=== PATIENT | male | born 1950 | race Caucasian/White ===

== ENCOUNTER 2017-01-04 11:01 | Inpatient (IN) ==
[2017-01-04] MEDS ORDERED: ACETAMINOPHEN 325 MG TABLET PO PRN (12:37)
[2017-01-04] MEDS ORDERED: ONDANSETRON 4 MG/2 ML VIAL IV PRN (12:37)
[2017-01-04 13:36] LABS: ABG Base Excess -1.9 MMOL/L (-2.5-2.5); ABG HCO3 20.8 MMOL/L (20-26); ABG Oxygen Saturation 94.3 % (95-100); ABG PCO2 30.4 MM HG (35-48); ABG PH 7.453 (7.35-7.45); ABG PO2 65.3 MM HG (80-95); ABG TCO2 21.7 MMOL/L (23-27); Pt O2 Delivery Device Room Air
[2017-01-04 13:54] LABS: Basophils % 0.6 % (0.0-0.8); Eosinophils # 0.1 10*3/uL (0.0-0.87); Eosinophils % 0.9 % (0.00-10.9); Hemoglobin 14.9 GM/DL (14.0-18.0); Immature Granulocytes % 0.4 %; Immature Granulocytes Absolute 0.03 #; Lymphocytes # 1.2 10*3/uL (1.4-4.0); Lymphocytes % 17.5 % (21.2-54.2); Mean Corpuscular HGB Conc 33.1 GM/DL (32-36); Mean Corpuscular Hemoglobin 32 PG (27-34); Mean Corpuscular Volume 96.8 FL (87-102); Mean Platelet Volume 11.2 FL (9.6-12.0); Monocytes # 0.8 10*3/uL (0.11-0.8); Monocytes % 11.5 % (1.7-12.7); Neutrophils # 4.7 10*3/uL (1.4-7.4); Neutrophils % 69.1 % (38.7-73.9); Platelet Count 234 T/CUMM (130-400); Red Blood Count 4.65 MC/CUMM (3.8-5.5); Red Cell Distribution Width 13.7 % (9.3-17.3); White Blood Count 6.8 T/CUMM (4-12)
[2017-01-04 14:15] LABS: Albumin 3.3 G/DL (3.4-5.0); Calcium 8.7 MG/DL (8.5-10.1); Osmolality,Calculated 280.4 MOS/KG (273-304); Total Protein 6.1 G/DL (6.4-8.3)
[2017-01-04 14:17] LABS: Troponin I Only 0.045 NG/ML (0.00-0.045)
[2017-01-04] MEDS: DOCUSATE SODIUM 100 MG CAPSULE PO SCH (21:32)
[2017-01-04] MEDS: FUROSEMIDE 20 MG/2 ML VIAL IV SCH (21:32)
[2017-01-04] MEDS: ENOXAPARIN 40 MG/0.4 ML SYRINGE SUBCUT SCH (21:32)
[2017-01-04 23:21] LABS: Apearance,Urine CLEAR (Clear); Bacteria,Urine Occasional /HPF (Few); Bilirubin,Urine Negative (Negative); Blood, Urine Moderate mg/dL (Negative); Glucose,Urine (UA) Negative (Negative); Hyaline Casts,Urine 5 /LPF (0-3); Ketones,Urine Negative (Negative); Mucus,Urine Occasional /LPF (Occasional); Nitrite,Urine Negative (Negative); Protein,Urine Negative; RBC,Urine 6 /HPF (0-4); Urine Color Straw (Yellow); Urine Specific Gravity 1.004 (1.001-1.035); Urine Urobilinogen < 2.0 EU/DL (0.2-1.0); WBC,Urine <1 /HPF (0-6)
[2017-01-05 04:17] LABS: Basophils % 0.4 % (0.0-0.8); Eosinophils # 0.2 10*3/uL (0.0-0.87); Eosinophils % 2.9 % (0.00-10.9); Hematocrit 42.3 VOL% (42.0-52.0); Hemoglobin 14.2 GM/DL (14.0-18.0); Immature Granulocytes % 0.3 %; Immature Granulocytes Absolute 0.02 #; Lymphocytes # 1.7 10*3/uL (1.4-4.0); Lymphocytes % 24.9 % (21.2-54.2); Mean Corpuscular HGB Conc 33.6 GM/DL (32-36); Mean Corpuscular Hemoglobin 32 PG (27-34); Mean Corpuscular Volume 96.4 FL (87-102); Mean Platelet Volume 10.5 FL (9.6-12.0); Monocytes # 0.9 10*3/uL (0.11-0.8); Monocytes % 12.2 % (1.7-12.7); Neutrophils # 4.1 10*3/uL (1.4-7.4); Neutrophils % 59.3 % (38.7-73.9); Platelet Count 238 T/CUMM (130-400); Red Blood Count 4.39 MC/CUMM (3.8-5.5); Red Cell Distribution Width 13.8 % (9.3-17.3)
[2017-01-05 04:48] LABS: Calcium 8.3 MG/DL (8.5-10.1); Magnesium 2.1 MG/DL (1.8-2.4); Osmolality,Calculated 282.3 MOS/KG (273-304); Potassium 4.2 MMOL/L (3.5-5.1); Risk Ratio 3.13; VLDL CHOLESTEROL 17.4 MG/DL
[2017-01-05 04:53] LABS: Free T4 (Free Thyroxine) 1.22 NG/DL (0.76-1.46); Thyroid Stimulating Hormone 3.89 uIU/ml (0.358-3.74)
[2017-01-05] MEDS: FUROSEMIDE 20 MG/2 ML VIAL IV SCH ×2 (09:25→16:15)
[2017-01-05] MEDS: NICOTINE 14 MG/24 HR PATCH TRANSDERM SCH (09:25)
[2017-01-05] MEDS: PANTOPRAZOLE 40 MG TABLET PO SCH (09:25)
[2017-01-05] MEDS: DOCUSATE SODIUM 100 MG CAPSULE PO SCH ×2 (09:25→21:14)
[2017-01-05] MEDS: CARVEDILOL 3.125 MG TABLET PO SCH ×2 (12:44→21:14)
[2017-01-05] MEDS ORDERED: diphenhydrAMINE CAP 25 MG CAPSULE PO ONE (16:39)
[2017-01-05] MEDS ORDERED: DIAZEPAM 5 MG TABLET PO ONE (16:39)
[2017-01-05] MEDS ORDERED: POTASSIUM CHLORIDE RIDER 10 MEQ in PREMIX 1 EACH IV PRN (16:39)
[2017-01-05] MEDS ORDERED: MAGNESIUM SULF RIDER 2 GM in PREMIX 1 EACH IV PRN (16:39)
[2017-01-05] MEDS: FUROSEMIDE 40 MG/4 ML VIAL IV SCH (18:21)
[2017-01-05] MEDS: ENOXAPARIN 40 MG/0.4 ML SYRINGE SUBCUT SCH (21:14)
[2017-01-06 04:24] LABS: Basophils % 0.6 % (0.0-0.8); Eosinophils # 0.2 10*3/uL (0.0-0.87); Eosinophils % 3.3 % (0.00-10.9); Hematocrit 42.8 VOL% (42.0-52.0); Hemoglobin 14.3 GM/DL (14.0-18.0); Immature Granulocytes % 0.3 %; Immature Granulocytes Absolute 0.02 #; Lymphocytes # 1.7 10*3/uL (1.4-4.0); Lymphocytes % 23.7 % (21.2-54.2); Mean Corpuscular HGB Conc 33.4 GM/DL (32-36); Mean Corpuscular Hemoglobin 32 PG (27-34); Mean Platelet Volume 10.3 FL (9.6-12.0); Monocytes # 0.8 10*3/uL (0.11-0.8); Monocytes % 11.9 % (1.7-12.7); Neutrophils # 4.2 10*3/uL (1.4-7.4); Neutrophils % 60.2 % (38.7-73.9); Platelet Count 243 T/CUMM (130-400); Red Blood Count 4.46 MC/CUMM (3.8-5.5); Red Cell Distribution Width 13.6 % (9.3-17.3)
[2017-01-06 04:41] LABS: Calcium 8.3 MG/DL (8.5-10.1); Magnesium 2.1 MG/DL (1.8-2.4); Osmolality,Calculated 285.1 MOS/KG (273-304); Potassium 3.7 MMOL/L (3.5-5.1)
[2017-01-06] MEDS: SODIUM CHLORIDE 0.9% 1,000 ML IV SCH ×2 (04:55→13:58)
[2017-01-06] MEDS ORDERED: DIAZEPAM 5 MG TABLET ONE (07:30)
[2017-01-06] MEDS ORDERED: diphenhydrAMINE CAP 50 MG CAPSULE ONE (07:30)
[2017-01-06] MEDS ORDERED: ASPIRIN 325 MG TABLET ONE (07:31)
[2017-01-06] MEDS ORDERED: ASPIRIN 325 MG TABLET PO ONE (07:48)
[2017-01-06] MEDS ORDERED: LIDOCAINE 1% 20 ML VIAL ONE (08:37)
[2017-01-06] MEDS ORDERED: HEPARIN/NACL 0.9% 2 UNITS/ML 1,000 ML IV ONE (08:37)
[2017-01-06] MEDS ORDERED: HYDROmorphone 2 MG/1 ML VIAL ONE (08:43)
[2017-01-06] MEDS ORDERED: MIDAZOLAM 2 MG/2 ML VIAL ONE (08:44)
[2017-01-06] MEDS ORDERED: ZALEPLON 5 MG CAPSULE PO PRN (09:23)
[2017-01-06] MEDS: FUROSEMIDE 40 MG/4 ML VIAL IV SCH ×3 (13:43→16:36)
[2017-01-06] MEDS: DOCUSATE SODIUM 100 MG CAPSULE PO SCH ×2 (13:56→21:36)
[2017-01-06] MEDS: CARVEDILOL 3.125 MG TABLET PO SCH ×2 (13:59→21:37)
[2017-01-06] MEDS: PANTOPRAZOLE 40 MG TABLET PO SCH (13:59)
[2017-01-06] MEDS: NICOTINE 14 MG/24 HR PATCH TRANSDERM SCH (13:59)
[2017-01-06] MEDS: ENOXAPARIN 40 MG/0.4 ML SYRINGE SUBCUT SCH (21:37)
[2017-01-07 05:49] LABS: Basophils % 0.5 % (0.0-0.8); Eosinophils # 0.2 10*3/uL (0.0-0.87); Eosinophils % 2.2 % (0.00-10.9); Hematocrit 41.8 VOL% (42.0-52.0); Immature Granulocytes % 0.4 %; Immature Granulocytes Absolute 0.03 #; Lymphocytes # 1.7 10*3/uL (1.4-4.0); Lymphocytes % 23.2 % (21.2-54.2); Mean Corpuscular HGB Conc 33.5 GM/DL (32-36); Mean Corpuscular Hemoglobin 32 PG (27-34); Mean Corpuscular Volume 95.7 FL (87-102); Mean Platelet Volume 10.2 FL (9.6-12.0); Monocytes # 0.9 10*3/uL (0.11-0.8); Monocytes % 11.9 % (1.7-12.7); Neutrophils # 4.5 10*3/uL (1.4-7.4); Neutrophils % 61.8 % (38.7-73.9); Platelet Count 243 T/CUMM (130-400); Red Blood Count 4.37 MC/CUMM (3.8-5.5); Red Cell Distribution Width 13.5 % (9.3-17.3); White Blood Count 7.3 T/CUMM (4-12)
[2017-01-07 06:05] LABS: Calcium 8.3 MG/DL (8.5-10.1); Magnesium 2.1 MG/DL (1.8-2.4); Osmolality,Calculated 285.1 MOS/KG (273-304)
[2017-01-07] MEDS: FUROSEMIDE 40 MG/4 ML VIAL IV SCH ×2 (09:02→16:13)
[2017-01-07] MEDS: DOCUSATE SODIUM 100 MG CAPSULE PO SCH ×2 (09:03→20:54)
[2017-01-07] MEDS: NICOTINE 14 MG/24 HR PATCH TRANSDERM SCH (09:03)
[2017-01-07] MEDS: CARVEDILOL 3.125 MG TABLET PO SCH ×2 (09:03→20:54)
[2017-01-07] MEDS: PANTOPRAZOLE 40 MG TABLET PO SCH (09:04)
[2017-01-07] MEDS ORDERED: MAGNESIUM HYDROXIDE SUSP 30 ML UDCUP PO PRN (15:17)
[2017-01-07] MEDS: LISINOPRIL 5 MG TABLET PO SCH (16:14)
[2017-01-07] MEDS: ASPIRIN EC 81 MG TABLET PO SCH (16:14)
[2017-01-07] MEDS: ENOXAPARIN 40 MG/0.4 ML SYRINGE SUBCUT SCH (20:54)
[2017-01-07] MEDS: ROSUVASTATIN 10 MG TABLET PO SCH (20:54)
[2017-01-08 05:37] LABS: Basophils % 0.6 % (0.0-0.8); Eosinophils # 0.3 10*3/uL (0.0-0.87); Eosinophils % 4.5 % (0.00-10.9); Hematocrit 43.6 VOL% (42.0-52.0); Hemoglobin 14.5 GM/DL (14.0-18.0); Immature Granulocytes % 0.2 %; Immature Granulocytes Absolute 0.01 #; Lymphocytes # 1.7 10*3/uL (1.4-4.0); Lymphocytes % 27.1 % (21.2-54.2); Mean Corpuscular HGB Conc 33.3 GM/DL (32-36); Mean Corpuscular Hemoglobin 32 PG (27-34); Mean Corpuscular Volume 96.9 FL (87-102); Mean Platelet Volume 10.1 FL (9.6-12.0); Monocytes # 0.9 10*3/uL (0.11-0.8); Monocytes % 13.9 % (1.7-12.7); Neutrophils # 3.4 10*3/uL (1.4-7.4); Neutrophils % 53.7 % (38.7-73.9); Platelet Count 250 T/CUMM (130-400); Red Cell Distribution Width 13.6 % (9.3-17.3); White Blood Count 6.4 T/CUMM (4-12)
[2017-01-08 06:31] LABS: Calcium 8.3 MG/DL (8.5-10.1); Magnesium 2.3 MG/DL (1.8-2.4); Osmolality,Calculated 282.3 MOS/KG (273-304); Potassium 3.9 MMOL/L (3.5-5.1)
[2017-01-08] MEDS ORDERED: diphenhydrAMINE CAP 25 MG CAPSULE PO ONE (07:14)
[2017-01-08] MEDS ORDERED: DIAZEPAM 5 MG TABLET PO ONE (07:14)
[2017-01-08] MEDS ORDERED: TICAGRELOR 90 MG TABLET PO ONE (07:16)
[2017-01-08] MEDS ORDERED: SODIUM CHLORIDE 0.45% 1,000 ML IV SCH (07:30)
[2017-01-08] MEDS: DOCUSATE SODIUM 100 MG CAPSULE PO SCH ×2 (08:42→20:38)
[2017-01-08] MEDS: FUROSEMIDE 40 MG/4 ML VIAL IV SCH ×2 (08:42→18:26)
[2017-01-08] MEDS: NICOTINE 14 MG/24 HR PATCH TRANSDERM SCH (11:52)
[2017-01-08] MEDS: LISINOPRIL 5 MG TABLET PO SCH (11:53)
[2017-01-08] MEDS: CARVEDILOL 3.125 MG TABLET PO SCH ×2 (11:53→20:38)
[2017-01-08] MEDS: TICAGRELOR 90 MG TABLET PO SCH ×2 (11:54→20:38)
[2017-01-08] MEDS: PANTOPRAZOLE 40 MG TABLET PO SCH (11:54)
[2017-01-08] MEDS: ASPIRIN EC 81 MG TABLET PO SCH (11:54)
[2017-01-08] MEDS ORDERED: LIDOCAINE 1% 20 ML VIAL ONE (12:39)
[2017-01-08] MEDS ORDERED: HEPARIN/NACL 0.9% 2 UNITS/ML 2,000 ML IV ONE (12:44)
[2017-01-08] MEDS ORDERED: fentaNYL 100 MCG/2 ML VIAL ONE ×2 (12:45→15:11)
[2017-01-08] MEDS ORDERED: MIDAZOLAM 2 MG/2 ML VIAL ONE (12:45)
[2017-01-08] MEDS ORDERED: HEPARIN 5,000 UNIT/1 ML VIAL ONE ×2 (13:07→14:41)
[2017-01-08] MEDS ORDERED: fentaNYL 100 MCG/2 ML VIAL IV PRN (15:19)
[2017-01-08] MEDS: ROSUVASTATIN 10 MG TABLET PO SCH (20:38)
[2017-01-09 04:45] LABS: Basophils % 0.3 % (0.0-0.8); Eosinophils # 0.1 10*3/uL (0.0-0.87); Eosinophils % 1.8 % (0.00-10.9); Hematocrit 41.7 VOL% (42.0-52.0); Hemoglobin 14.3 GM/DL (14.0-18.0); Immature Granulocytes % 0.4 %; Immature Granulocytes Absolute 0.03 #; Lymphocytes # 1.2 10*3/uL (1.4-4.0); Lymphocytes % 14.4 % (21.2-54.2); Mean Corpuscular HGB Conc 34.3 GM/DL (32-36); Mean Corpuscular Hemoglobin 32 PG (27-34); Mean Corpuscular Volume 94.6 FL (87-102); Mean Platelet Volume 9.9 FL (9.6-12.0); Monocytes % 12.8 % (1.7-12.7); Neutrophils # 5.6 10*3/uL (1.4-7.4); Neutrophils % 70.3 % (38.7-73.9); Platelet Count 268 T/CUMM (130-400); Red Blood Count 4.41 MC/CUMM (3.8-5.5); Red Cell Distribution Width 13.4 % (9.3-17.3)
[2017-01-09 05:59] LABS: Calcium 8.2 MG/DL (8.5-10.1); Magnesium 2.1 MG/DL (1.8-2.4); Osmolality,Calculated 279.5 MOS/KG (273-304); Potassium 3.6 MMOL/L (3.5-5.1)
[2017-01-09] MEDS: DOCUSATE SODIUM 100 MG CAPSULE PO SCH ×2 (10:54→20:51)
[2017-01-09] MEDS: CARVEDILOL 3.125 MG TABLET PO SCH ×2 (10:54→20:51)
[2017-01-09] MEDS: TICAGRELOR 90 MG TABLET PO SCH ×2 (10:54→20:51)
[2017-01-09] MEDS: PANTOPRAZOLE 40 MG TABLET PO SCH (10:55)
[2017-01-09] MEDS: ASPIRIN EC 81 MG TABLET PO SCH (10:55)
[2017-01-09] MEDS: FUROSEMIDE 40 MG/4 ML VIAL IV SCH (10:56)
[2017-01-09] MEDS: LISINOPRIL 2.5 MG TABLET PO SCH (10:56)
[2017-01-09] MEDS: NICOTINE 14 MG/24 HR PATCH TRANSDERM SCH (10:56)
[2017-01-09] MEDS: FUROSEMIDE 40 MG TABLET PO SCH (10:58)
[2017-01-09] MEDS ORDERED: MIDAZOLAM 2 MG/2 ML VIAL IV ONE (12:11)
[2017-01-09] MEDS ORDERED: PROPOFOL 1,000 MG/100 ML BOTTLE IV SCH (12:30)
[2017-01-09] MEDS ORDERED: MIDAZOLAM 100 MG in SODIUM CHLORIDE 0.9% 80 ML IV SCH (12:30)
[2017-01-09] MEDS: ROSUVASTATIN 10 MG TABLET PO SCH (20:51)
[2017-01-10 05:45] LABS: Basophils % 0.4 % (0.0-0.8); Eosinophils # 0.3 10*3/uL (0.0-0.87); Eosinophils % 3.9 % (0.00-10.9); Hematocrit 42.6 VOL% (42.0-52.0); Hemoglobin 14.2 GM/DL (14.0-18.0); Immature Granulocytes % 0.4 %; Immature Granulocytes Absolute 0.03 #; Lymphocytes # 1.7 10*3/uL (1.4-4.0); Lymphocytes % 21.7 % (21.2-54.2); Mean Corpuscular HGB Conc 33.3 GM/DL (32-36); Mean Corpuscular Hemoglobin 32 PG (27-34); Mean Corpuscular Volume 95.5 FL (87-102); Mean Platelet Volume 9.8 FL (9.6-12.0); Neutrophils # 4.7 10*3/uL (1.4-7.4); Neutrophils % 60.6 % (38.7-73.9); Platelet Count 246 T/CUMM (130-400); Red Blood Count 4.46 MC/CUMM (3.8-5.5); Red Cell Distribution Width 13.3 % (9.3-17.3); White Blood Count 7.7 T/CUMM (4-12)
[2017-01-10 06:06] LABS: Calcium 7.9 MG/DL (8.5-10.1); Magnesium 2.3 MG/DL (1.8-2.4); Osmolality,Calculated 284.3 MOS/KG (273-304); Potassium 3.6 MMOL/L (3.5-5.1)
[2017-01-10] MEDS: LISINOPRIL 2.5 MG TABLET PO SCH (08:46)
[2017-01-10] MEDS: ASPIRIN EC 81 MG TABLET PO SCH (08:46)
[2017-01-10] MEDS: FUROSEMIDE 40 MG TABLET PO SCH (08:46)
[2017-01-10] MEDS: CARVEDILOL 3.125 MG TABLET PO SCH ×2 (08:46→22:31)
[2017-01-10] MEDS: DOCUSATE SODIUM 100 MG CAPSULE PO SCH ×2 (08:46→22:31)
[2017-01-10] MEDS: PANTOPRAZOLE 40 MG TABLET PO SCH (08:46)
[2017-01-10] MEDS: NICOTINE 14 MG/24 HR PATCH TRANSDERM SCH (08:46)
[2017-01-10] MEDS: TICAGRELOR 90 MG TABLET PO SCH ×2 (08:46→22:31)
[2017-01-10] MEDS: ROSUVASTATIN 10 MG TABLET PO SCH (22:31)
[2017-01-11] MEDS: CARVEDILOL 3.125 MG TABLET PO SCH ×2 (08:47→21:18)
[2017-01-11] MEDS: LISINOPRIL 2.5 MG TABLET PO SCH (08:47)
[2017-01-11] MEDS: PANTOPRAZOLE 40 MG TABLET PO SCH (08:47)
[2017-01-11] MEDS: FUROSEMIDE 40 MG TABLET PO SCH (08:47)
[2017-01-11] MEDS: DOCUSATE SODIUM 100 MG CAPSULE PO SCH ×2 (08:47→21:18)
[2017-01-11] MEDS: NICOTINE 14 MG/24 HR PATCH TRANSDERM SCH (08:48)
[2017-01-11] MEDS: ASPIRIN EC 81 MG TABLET PO SCH (08:48)
[2017-01-11] MEDS: TICAGRELOR 90 MG TABLET PO SCH ×2 (08:48→21:18)
[2017-01-11 09:26] LABS: Basophils % 0.4 % (0.0-0.8); Eosinophils # 0.2 10*3/uL (0.0-0.87); Eosinophils % 2.9 % (0.00-10.9); Hematocrit 41.3 VOL% (42.0-52.0); Hemoglobin 14.1 GM/DL (14.0-18.0); Immature Granulocytes % 0.6 %; Immature Granulocytes Absolute 0.05 #; Lymphocytes # 1.5 10*3/uL (1.4-4.0); Lymphocytes % 18.1 % (21.2-54.2); Mean Corpuscular HGB Conc 34.1 GM/DL (32-36); Mean Corpuscular Hemoglobin 32 PG (27-34); Mean Corpuscular Volume 94.3 FL (87-102); Neutrophils # 5.4 10*3/uL (1.4-7.4); Platelet Count 276 T/CUMM (130-400); Red Blood Count 4.38 MC/CUMM (3.8-5.5); Red Cell Distribution Width 13.1 % (9.3-17.3); White Blood Count 8.2 T/CUMM (4-12)
[2017-01-11 09:52] LABS: Calcium 8.4 MG/DL (8.5-10.1); Magnesium 2.2 MG/DL (1.8-2.4); Osmolality,Calculated 282.5 MOS/KG (273-304); Potassium 3.8 MMOL/L (3.5-5.1)
[2017-01-11] MEDS ORDERED: ZINC OXIDE PASTE 113 GM TUBE TOP PRN (10:54)
[2017-01-11] MEDS: ROSUVASTATIN 10 MG TABLET PO SCH (21:18)
[2017-01-12] MEDS: LISINOPRIL 2.5 MG TABLET PO SCH (08:54)
[2017-01-12] MEDS: DOCUSATE SODIUM 100 MG CAPSULE PO SCH (08:54)
[2017-01-12] MEDS: FUROSEMIDE 40 MG TABLET PO SCH (08:55)
[2017-01-12] MEDS: PANTOPRAZOLE 40 MG TABLET PO SCH (08:55)
[2017-01-12] MEDS: NICOTINE 14 MG/24 HR PATCH TRANSDERM SCH (08:55)
[2017-01-12] MEDS: TICAGRELOR 90 MG TABLET PO SCH (08:55)
[2017-01-12] MEDS: CARVEDILOL 3.125 MG TABLET PO SCH (08:55)
[2017-01-12] MEDS: ASPIRIN EC 81 MG TABLET PO SCH (08:55)
[2017-01-12 11:10] LABS: Basophils % 0.5 % (0.0-0.8); Eosinophils # 0.2 10*3/uL (0.0-0.87); Hematocrit 39.8 VOL% (42.0-52.0); Hemoglobin 13.4 GM/DL (14.0-18.0); Immature Granulocytes % 0.7 %; Immature Granulocytes Absolute 0.05 #; Lymphocytes # 1.4 10*3/uL (1.4-4.0); Lymphocytes % 17.9 % (21.2-54.2); Mean Corpuscular HGB Conc 33.7 GM/DL (32-36); Mean Corpuscular Hemoglobin 32 PG (27-34); Mean Corpuscular Volume 94.5 FL (87-102); Mean Platelet Volume 10.2 FL (9.6-12.0); Monocytes # 0.9 10*3/uL (0.11-0.8); Neutrophils # 5.1 10*3/uL (1.4-7.4); Neutrophils % 65.9 % (38.7-73.9); Platelet Count 277 T/CUMM (130-400); Red Blood Count 4.21 MC/CUMM (3.8-5.5); Red Cell Distribution Width 13.1 % (9.3-17.3); White Blood Count 7.7 T/CUMM (4-12)
[2017-01-12 11:43] VITALS: BP 102/59
[2017-01-12 11:49] LABS: Calcium 8.6 MG/DL (8.5-10.1); Magnesium 2.3 MG/DL (1.8-2.4); Osmolality,Calculated 278.1 MOS/KG (273-304); Potassium 3.8 MMOL/L (3.5-5.1)
== END 2017-01-12 14:48 | disposition home or self-care (01) | DRG 215 ==
LOC: N.TELEN 11:35 → N.CC 01-08 15:40 → N.TELES 01-10 11:35
PROVIDERS: ADMIT Family Medicine; ATTEND Family Medicine
PROC: CLCCHCL (ICD-10-PCS; 2017-01-08 14:15)

== ENCOUNTER 2017-05-10 09:06 | Inpatient (IN) ==
[2017-05-10] MEDS ORDERED: ceFAZolin 1,000 MG in SYRINGE 1 EACH IV ONE (09:21)
[2017-05-10] MEDS ORDERED: ceFAZolin 1,000 MG VIAL IRRIG ONE (09:21)
[2017-05-10] MEDS ORDERED: diphenhydrAMINE CAP 25 MG CAPSULE PO ONE (09:21)
[2017-05-10] MEDS ORDERED: DIAZEPAM 5 MG TABLET PO ONE (09:21)
[2017-05-10] MEDS ORDERED: VANCOMYCIN 500 MG VIAL IRRIG ONE (09:21)
[2017-05-10] MEDS ORDERED: SODIUM CHLORIDE 0.9% 1,000 ML IV SCH (09:30)
[2017-05-10] MEDS ORDERED: LIDOCAINE 1% 20 ML VIAL ONE (11:12)
[2017-05-10] MEDS ORDERED: HEPARIN/NACL 0.9% 2 UNITS/ML 500 ML IV ONE (11:12)
[2017-05-10] MEDS ORDERED: TISSUE ADHESIVE 1 EACH APPLICATOR TOP ONE (11:13)
[2017-05-10] MEDS ORDERED: MIDAZOLAM 2 MG/2 ML VIAL ONE ×2 (11:13→11:42)
[2017-05-10] MEDS ORDERED: ceFAZolin 1,000 MG VIAL ONE (11:13)
[2017-05-10] MEDS ORDERED: fentaNYL 100 MCG/2 ML VIAL ONE (11:13)
[2017-05-10 11:14] LABS: Basophils % 0.7 % (0.0-0.8); Eosinophils # 0.2 10*3/uL (0.0-0.87); Eosinophils % 2.6 % (0.00-10.9); Hematocrit 40.7 VOL% (42.0-52.0); Hemoglobin 13.6 GM/DL (14.0-18.0); Immature Granulocytes % 0.2 %; Immature Granulocytes Absolute 0.01 #; Lymphocytes # 0.9 10*3/uL (1.4-4.0); Lymphocytes % 14.9 % (21.2-54.2); Mean Corpuscular HGB Conc 33.4 GM/DL (32-36); Mean Corpuscular Hemoglobin 32 PG (27-34); Mean Corpuscular Volume 94.2 FL (87-102); Monocytes # 0.8 10*3/uL (0.11-0.8); Monocytes % 12.5 % (1.7-12.7); Neutrophils # 4.2 10*3/uL (1.4-7.4); Neutrophils % 69.1 % (38.7-73.9); Platelet Count 177 T/CUMM (130-400); Red Blood Count 4.32 MC/CUMM (3.8-5.5); Red Cell Distribution Width 14.2 % (9.3-17.3); White Blood Count 6.1 T/CUMM (4-12)
[2017-05-10] MEDS ORDERED: VANCOMYCIN 500 MG VIAL ONE (11:17)
[2017-05-10 11:40] LABS: Calcium 8.5 MG/DL (8.5-10.1); Osmolality,Calculated 281.5 MOS/KG (273-304); Potassium 3.9 MMOL/L (3.5-5.1)
[2017-05-10] MEDS: LEVOFLOXACIN INJ 500 MG in PREMIX 1 EACH IV SCH (13:38)
[2017-05-10] MEDS: CARVEDILOL 3.125 MG TABLET PO SCH ×2 (21:27→21:45)
[2017-05-11 04:57] LABS: Basophils % 0.5 % (0.0-0.8); Eosinophils # 0.2 10*3/uL (0.0-0.87); Eosinophils % 3.3 % (0.00-10.9); Hematocrit 40.9 VOL% (42.0-52.0); Hemoglobin 13.5 GM/DL (14.0-18.0); Immature Granulocytes % 0.3 %; Immature Granulocytes Absolute 0.02 #; Lymphocytes # 1.5 10*3/uL (1.4-4.0); Mean Corpuscular Hemoglobin 31 PG (27-34); Mean Corpuscular Volume 94.7 FL (87-102); Mean Platelet Volume 10.3 FL (9.6-12.0); Monocytes # 0.7 10*3/uL (0.11-0.8); Monocytes % 11.9 % (1.7-12.7); Neutrophils # 3.7 10*3/uL (1.4-7.4); Platelet Count 161 T/CUMM (130-400); Red Blood Count 4.32 MC/CUMM (3.8-5.5); Red Cell Distribution Width 14.2 % (9.3-17.3); White Blood Count 6.1 T/CUMM (4-12)
[2017-05-11 05:29] LABS: Calcium 8.4 MG/DL (8.5-10.1); Osmolality,Calculated 282.3 MOS/KG (273-304); Potassium 3.7 MMOL/L (3.5-5.1)
[2017-05-11] MEDS ORDERED: ENOXAPARIN 40 MG/0.4 ML SYRINGE SUBCUT SCH (06:30)
[2017-05-11] MEDS: CARVEDILOL 3.125 MG TABLET PO SCH (08:26)
[2017-05-11] MEDS ORDERED: MULTIVITAMIN (CENTRUM) TABLET PO SCH (09:00)
[2017-05-11] MEDS ORDERED: PANTOPRAZOLE 40 MG TABLET PO SCH (09:00)
[2017-05-11] MEDS ORDERED: CLOPIDOGREL 75 MG TABLET PO SCH (09:00)
[2017-05-11] MEDS ORDERED: ASPIRIN EC 81 MG TABLET PO SCH (09:00)
[2017-05-11] MEDS ORDERED: SULFAMETHOX/TRIMETHOPRIM 800-160 MG TABLET PO SCH (09:00)
[2017-05-11] MEDS ORDERED: DOCUSATE SODIUM 100 MG CAPSULE PO SCH (09:00)
[2017-05-11] MEDS ORDERED: LISINOPRIL 2.5 MG TABLET PO SCH (09:00)
[2017-05-11] MEDS ORDERED: FUROSEMIDE 40 MG TABLET PO SCH (09:00)
[2017-05-11 12:03] VITALS: BP 113/82
[2017-05-11] MEDS: LEVOFLOXACIN INJ 500 MG in PREMIX 1 EACH IV SCH (12:40)
== END 2017-05-11 15:00 | disposition home or self-care (01) | DRG 262 ==
LOC: N.TELEN 10:15
PROVIDERS: ADMIT Internal Medicine Cardiovascular Disease; ATTEND Internal Medicine Cardiovascular Disease

== ENCOUNTER 2019-08-30 17:04 | Inpatient (IN) ==
[2019-08-30 17:35] LABS: Basophils % 0.3 % (0.0-0.8); Eosinophils # 0.1 10*3/uL (0.0-0.87); Eosinophils % 1.7 % (0.00-10.9); Hematocrit 48.3 VOL% (42.0-52.0); Hgb & Hct Comparison OK; Immature Granulocytes % 0.3 %; Immature Granulocytes Absolute 0.02 #; Lymphocytes # 0.9 10*3/uL (1.4-4.0); Lymphocytes % 13.3 % (21.2-54.2); Mean Corpuscular HGB Conc 33.1 GM/DL (32-36); Mean Corpuscular Hemoglobin 32 PG (27-34); Mean Corpuscular Volume 95.5 FL (87-102); Mean Platelet Volume 10.1 FL (9.6-12.0); Monocytes % 15.3 % (1.7-12.7); Neutrophils # 4.5 10*3/uL (1.4-7.4); Neutrophils % 69.1 % (38.7-73.9); Platelet Count 238 T/CUMM (130-400); Red Blood Count 5.06 MC/CUMM (3.8-5.5); Red Cell Distribution Width 13.2 % (9.3-17.3); White Blood Count 6.6 T/CUMM (4-12)
[2019-08-30 17:53] LABS: Albumin 3.7 G/DL (3.4-5.0); Albumin/Globulin Ratio 1.2 RATIO (1.1-2.2); Anion Gap 17.4 MMOL/L (5.0-15.0); Bilirubin,Total 1.9 MG/DL (0.2-1.0); Calcium 8.5 MG/DL (8.5-10.1); Osmolality,Calculated 289.7 MOS/KG (273-304); Potassium 4.4 MMOL/L (3.5-5.1); Total Protein 6.7 G/DL (6.4-8.3)
[2019-08-30] MEDS ORDERED: SODIUM CHLORIDE 0.9% 500 ML IV STA ×2 (18:16→19:19)
[2019-08-30 18:39] LABS: INR 1.5; PT Patient Result 16.2 SECS (9.8-11.9); Partial Thromboplastin Time 28.5 SECS (23.9-33.8)
[2019-08-30 18:51] LABS: Creatine Kinase MB 6.3 NG/ML (0.5-3.6)
[2019-08-30] MEDS ORDERED: MAGNESIUM SULF RIDER 2 GM in PREMIX 1 EACH IV PRN (23:21)
[2019-08-30] MEDS ORDERED: MAGNESIUM SULF RIDER 4 GM in PREMIX 1 EACH IV PRN (23:21)
[2019-08-30] MEDS ORDERED: ACETAMINOPHEN 325 MG TABLET PO PRN (23:21)
[2019-08-31] MEDS: SODIUM CHLORIDE 0.9% 1,000 ML IV SCH ×3 (00:20→08:24)
[2019-08-31] MEDS: FUROSEMIDE 40 MG TABLET PO SCH ×2 (00:23→09:02)
[2019-08-31 00:27] LABS: Creatine Kinase MB 5.2 NG/ML (0.5-3.6)
[2019-08-31 00:30] LABS: Troponin I 5.98 NG/ML (0.00-0.045)
[2019-08-31] MEDS: carvediloL 3.125 MG TABLET PO SCH ×3 (00:43→21:36)
[2019-08-31 03:25] LABS: Basophils % 0.3 % (0.0-0.8); Eosinophils # 0.1 10*3/uL (0.0-0.87); Eosinophils % 0.9 % (0.00-10.9); Hematocrit 47.1 VOL% (42.0-52.0); Hemoglobin 15.7 GM/DL (14.0-18.0); Hgb & Hct Comparison OK; Immature Granulocytes % 0.3 %; Immature Granulocytes Absolute 0.02 #; Lymphocytes # 0.7 10*3/uL (1.4-4.0); Lymphocytes % 11.4 % (21.2-54.2); Mean Corpuscular HGB Conc 33.3 GM/DL (32-36); Mean Corpuscular Hemoglobin 32 PG (27-34); Mean Corpuscular Volume 94.6 FL (87-102); Monocytes # 0.9 10*3/uL (0.11-0.8); Monocytes % 15.5 % (1.7-12.7); Neutrophils # 4.2 10*3/uL (1.4-7.4); Neutrophils % 71.6 % (38.7-73.9); Platelet Count 186 T/CUMM (130-400); Red Blood Count 4.98 MC/CUMM (3.8-5.5); Red Cell Distribution Width 13.2 % (9.3-17.3); White Blood Count 5.9 T/CUMM (4-12)
[2019-08-31 03:44] LABS: Anion Gap 14.6 MMOL/L (5.0-15.0); Calcium 8.3 MG/DL (8.5-10.1); Osmolality,Calculated 291.4 MOS/KG (273-304); Potassium 4.6 MMOL/L (3.5-5.1)
[2019-08-31 03:48] LABS: Creatine Kinase MB 4.3 NG/ML (0.5-3.6)
[2019-08-31 06:35] LABS: Creatine Kinase MB 4.6 NG/ML (0.5-3.6)
[2019-08-31] MEDS: LEVOTHYROXINE 100 MCG TABLET PO SCH (07:49)
[2019-08-31] MEDS ORDERED: lisinopriL 2.5 MG TABLET PO SCH (09:00)
[2019-08-31] MEDS: ASPIRIN EC 81 MG TABLET PO SCH (09:41)
[2019-08-31] MEDS: ENOXAPARIN 30 MG/0.3 ML SYRINGE SUBCUT SCH (09:42)
[2019-08-31] MEDS: PANTOPRAZOLE 40 MG TABLET PO SCH (09:42)
[2019-08-31] MEDS: DOBUTamine 500 MG/250 ML PREMIX IV PRN ×2 (09:42→20:43)
[2019-08-31] MEDS: CLOPIDOGREL 75 MG TABLET PO SCH (09:42)
[2019-08-31] MEDS: ONDANSETRON 4 MG/2 ML VIAL IV PRN ×2 (17:30→21:36)
[2019-08-31] MEDS: ATORVASTATIN 20 MG TABLET PO SCH (21:36)
[2019-09-01 04:51] LABS: Basophils % 0.2 % (0.0-0.8); Eosinophils # 0.1 10*3/uL (0.0-0.87); Eosinophils % 1.5 % (0.00-10.9); Hematocrit 45.2 VOL% (42.0-52.0); Hgb & Hct Comparison OK; Immature Granulocytes % 0.2 %; Immature Granulocytes Absolute 0.01 #; Lymphocytes # 0.5 10*3/uL (1.4-4.0); Lymphocytes % 8.9 % (21.2-54.2); Mean Corpuscular HGB Conc 33.2 GM/DL (32-36); Mean Corpuscular Hemoglobin 32 PG (27-34); Mean Platelet Volume 10.1 FL (9.6-12.0); Monocytes # 0.9 10*3/uL (0.11-0.8); Monocytes % 14.6 % (1.7-12.7); Neutrophils # 4.5 10*3/uL (1.4-7.4); Neutrophils % 74.6 % (38.7-73.9); Platelet Count 183 T/CUMM (130-400); Red Blood Count 4.76 MC/CUMM (3.8-5.5); Red Cell Distribution Width 13.1 % (9.3-17.3)
[2019-09-01 05:03] LABS: Calcium 8.5 MG/DL (8.5-10.1)
[2019-09-01 05:04] LABS: Anion Gap 12.2 MMOL/L (5.0-15.0); Magnesium 2.6 MG/DL (1.8-2.4); Osmolality,Calculated 286.5 MOS/KG (273-304); Potassium 4.2 MMOL/L (3.5-5.1)
[2019-09-01] MEDS: LEVOTHYROXINE 100 MCG TABLET PO SCH (07:01)
[2019-09-01] MEDS: ONDANSETRON 4 MG/2 ML VIAL IV PRN ×3 (07:25→21:45)
[2019-09-01] MEDS: DOBUTamine 500 MG/250 ML PREMIX IV PRN ×2 (09:10→16:30)
[2019-09-01] MEDS: PANTOPRAZOLE 40 MG TABLET PO SCH (09:15)
[2019-09-01] MEDS: CLOPIDOGREL 75 MG TABLET PO SCH (09:15)
[2019-09-01] MEDS: ASPIRIN EC 81 MG TABLET PO SCH (09:15)
[2019-09-01] MEDS: carvediloL 3.125 MG TABLET PO SCH ×2 (09:15→21:46)
[2019-09-01] MEDS: ENOXAPARIN 30 MG/0.3 ML SYRINGE SUBCUT SCH (09:15)
[2019-09-01] MEDS: ATORVASTATIN 20 MG TABLET PO SCH (21:46)
[2019-09-02] MEDS: DOBUTamine 500 MG/250 ML PREMIX IV PRN ×3 (01:05→18:20)
[2019-09-02 04:36] LABS: Basophils % 0.2 % (0.0-0.8); Eosinophils # 0.1 10*3/uL (0.0-0.87); Eosinophils % 1.9 % (0.00-10.9); Hemoglobin 14.9 GM/DL (14.0-18.0); Hgb & Hct Comparison OK; Immature Granulocytes % 0.4 %; Immature Granulocytes Absolute 0.02 #; Lymphocytes # 0.5 10*3/uL (1.4-4.0); Lymphocytes % 8.3 % (21.2-54.2); Mean Corpuscular HGB Conc 32.4 GM/DL (32-36); Mean Corpuscular Hemoglobin 31 PG (27-34); Mean Corpuscular Volume 96.6 FL (87-102); Mean Platelet Volume 9.9 FL (9.6-12.0); Monocytes # 0.7 10*3/uL (0.11-0.8); Monocytes % 13.1 % (1.7-12.7); Neutrophils # 4.3 10*3/uL (1.4-7.4); Neutrophils % 76.1 % (38.7-73.9); Platelet Count 171 T/CUMM (130-400); Red Blood Count 4.76 MC/CUMM (3.8-5.5); White Blood Count 5.7 T/CUMM (4-12)
[2019-09-02 04:54] LABS: Anion Gap 9.6 MMOL/L (5.0-15.0); Calcium 8.4 MG/DL (8.5-10.1); Magnesium 2.6 MG/DL (1.8-2.4); Osmolality,Calculated 281.5 MOS/KG (273-304); Potassium 4.6 MMOL/L (3.5-5.1)
[2019-09-02] MEDS: LEVOTHYROXINE 100 MCG TABLET PO SCH (06:30)
[2019-09-02] MEDS: ONDANSETRON 4 MG/2 ML VIAL IV PRN ×2 (08:25→21:15)
[2019-09-02] MEDS: PANTOPRAZOLE 40 MG TABLET PO SCH (09:15)
[2019-09-02] MEDS: ENOXAPARIN 30 MG/0.3 ML SYRINGE SUBCUT SCH (09:15)
[2019-09-02] MEDS: ASPIRIN EC 81 MG TABLET PO SCH (09:15)
[2019-09-02] MEDS: CLOPIDOGREL 75 MG TABLET PO SCH (09:15)
[2019-09-02] MEDS: carvediloL 3.125 MG TABLET PO SCH ×2 (09:15→21:11)
[2019-09-02] MEDS ORDERED: PROMETHAZINE INJ 25 MG in SODIUM CHLORIDE 0.9% 50 ML IV PRN (13:00)
[2019-09-02] MEDS: ATORVASTATIN 20 MG TABLET PO SCH (21:11)
[2019-09-03] MEDS: DOBUTamine 500 MG/250 ML PREMIX IV PRN ×2 (03:25→11:34)
[2019-09-03 04:16] LABS: Basophils % 0.4 % (0.0-0.8); Eosinophils # 0.2 10*3/uL (0.0-0.87); Eosinophils % 2.8 % (0.00-10.9); Hematocrit 46.4 VOL% (42.0-52.0); Hemoglobin 15.2 GM/DL (14.0-18.0); Hgb & Hct Comparison OK; Immature Granulocytes % 0.4 %; Immature Granulocytes Absolute 0.02 #; Lymphocytes # 0.5 10*3/uL (1.4-4.0); Lymphocytes % 8.7 % (21.2-54.2); Mean Corpuscular HGB Conc 32.8 GM/DL (32-36); Mean Corpuscular Hemoglobin 31 PG (27-34); Mean Corpuscular Volume 95.1 FL (87-102); Mean Platelet Volume 10.1 FL (9.6-12.0); Monocytes # 0.7 10*3/uL (0.11-0.8); Monocytes % 13.2 % (1.7-12.7); Neutrophils # 4.2 10*3/uL (1.4-7.4); Neutrophils % 74.5 % (38.7-73.9); Platelet Count 159 T/CUMM (130-400); Red Blood Count 4.88 MC/CUMM (3.8-5.5); Red Cell Distribution Width 13.1 % (9.3-17.3); White Blood Count 5.6 T/CUMM (4-12)
[2019-09-03 04:54] LABS: Anion Gap 10.9 MMOL/L (5.0-15.0); Calcium 8.5 MG/DL (8.5-10.1); Magnesium 2.6 MG/DL (1.8-2.4); Osmolality,Calculated 276.7 MOS/KG (273-304); Potassium 4.9 MMOL/L (3.5-5.1)
[2019-09-03] MEDS: LEVOTHYROXINE 100 MCG TABLET PO SCH (06:37)
[2019-09-03] MEDS: carvediloL 3.125 MG TABLET PO SCH ×2 (09:11→20:33)
[2019-09-03] MEDS: CLOPIDOGREL 75 MG TABLET PO SCH (09:11)
[2019-09-03] MEDS: ASPIRIN EC 81 MG TABLET PO SCH (09:11)
[2019-09-03] MEDS: PANTOPRAZOLE 40 MG TABLET PO SCH (09:11)
[2019-09-03] MEDS: ENOXAPARIN 30 MG/0.3 ML SYRINGE SUBCUT SCH (09:12)
[2019-09-03] MEDS: ATORVASTATIN 20 MG TABLET PO SCH (20:33)
[2019-09-03] MEDS: DOBUTamine 500 MG/250 ML PREMIX IV SCH (20:35)
[2019-09-04] MEDS: DOBUTamine 500 MG/250 ML PREMIX IV SCH ×3 (00:29→18:18)
[2019-09-04 05:46] LABS: Basophils % 0.5 % (0.0-0.8); Eosinophils # 0.2 10*3/uL (0.0-0.87); Eosinophils % 3.1 % (0.00-10.9); Hematocrit 45.9 VOL% (42.0-52.0); Hemoglobin 15.3 GM/DL (14.0-18.0); Hgb & Hct Comparison OK; Immature Granulocytes % 0.3 %; Immature Granulocytes Absolute 0.02 #; Lymphocytes # 0.6 10*3/uL (1.4-4.0); Lymphocytes % 10.2 % (21.2-54.2); Mean Corpuscular HGB Conc 33.3 GM/DL (32-36); Mean Corpuscular Hemoglobin 31 PG (27-34); Mean Corpuscular Volume 93.7 FL (87-102); Mean Platelet Volume 10.1 FL (9.6-12.0); Monocytes # 0.9 10*3/uL (0.11-0.8); Monocytes % 14.5 % (1.7-12.7); Neutrophils # 4.2 10*3/uL (1.4-7.4); Neutrophils % 71.4 % (38.7-73.9); Platelet Count 161 T/CUMM (130-400); Red Cell Distribution Width 13.1 % (9.3-17.3); White Blood Count 5.9 T/CUMM (4-12)
[2019-09-04] MEDS: LEVOTHYROXINE 100 MCG TABLET PO SCH (06:01)
[2019-09-04 06:05] LABS: Anion Gap 12.5 MMOL/L (5.0-15.0); Calcium 8.3 MG/DL (8.5-10.1); Magnesium 2.5 MG/DL (1.8-2.4); Osmolality,Calculated 269.9 MOS/KG (273-304); Potassium 4.5 MMOL/L (3.5-5.1)
[2019-09-04] MEDS: ENOXAPARIN 30 MG/0.3 ML SYRINGE SUBCUT SCH (09:51)
[2019-09-04] MEDS: ASPIRIN EC 81 MG TABLET PO SCH (09:52)
[2019-09-04] MEDS: PANTOPRAZOLE 40 MG TABLET PO SCH (09:52)
[2019-09-04] MEDS: CLOPIDOGREL 75 MG TABLET PO SCH (09:52)
[2019-09-04] MEDS: carvediloL 3.125 MG TABLET PO SCH ×2 (09:52→21:37)
[2019-09-04] MEDS: ATORVASTATIN 20 MG TABLET PO SCH (21:37)
[2019-09-05] MEDS: DOBUTamine 500 MG/250 ML PREMIX IV SCH ×4 (05:42→22:25)
[2019-09-05] MEDS: LEVOTHYROXINE 100 MCG TABLET PO SCH (05:43)
[2019-09-05] MEDS: CLOPIDOGREL 75 MG TABLET PO SCH (08:58)
[2019-09-05] MEDS: carvediloL 3.125 MG TABLET PO SCH ×2 (08:58→21:02)
[2019-09-05] MEDS: PANTOPRAZOLE 40 MG TABLET PO SCH (08:59)
[2019-09-05] MEDS: ENOXAPARIN 30 MG/0.3 ML SYRINGE SUBCUT SCH (08:59)
[2019-09-05] MEDS: ASPIRIN EC 81 MG TABLET PO SCH (08:59)
[2019-09-05] MEDS: FUROSEMIDE 40 MG/4 ML VIAL IV SCH (08:59)
[2019-09-05] MEDS: ATORVASTATIN 20 MG TABLET PO SCH (21:02)
[2019-09-06] MEDS: LEVOTHYROXINE 100 MCG TABLET PO SCH (06:20)
[2019-09-06 06:37] LABS: Anion Gap 15.4 MMOL/L (5.0-15.0); Calcium 8.4 MG/DL (8.5-10.1); Magnesium 2.4 MG/DL (1.8-2.4); Osmolality,Calculated 272.7 MOS/KG (273-304); Potassium 4.4 MMOL/L (3.5-5.1)
[2019-09-06] MEDS: CLOPIDOGREL 75 MG TABLET PO SCH (09:56)
[2019-09-06] MEDS: carvediloL 3.125 MG TABLET PO SCH ×2 (09:56→21:43)
[2019-09-06] MEDS: ENOXAPARIN 30 MG/0.3 ML SYRINGE SUBCUT SCH (09:56)
[2019-09-06] MEDS: ASPIRIN EC 81 MG TABLET PO SCH (09:56)
[2019-09-06] MEDS: PANTOPRAZOLE 40 MG TABLET PO SCH (09:56)
[2019-09-06] MEDS: FUROSEMIDE 40 MG/4 ML VIAL IV SCH (09:57)
[2019-09-06] MEDS: DOBUTamine 500 MG/250 ML PREMIX IV SCH (13:34)
[2019-09-06] MEDS ORDERED: diphenhydrAMINE CAP 25 MG CAPSULE PO PRN (16:33)
[2019-09-06] MEDS ORDERED: MAGNESIUM HYDROXIDE SUSP 30 ML UDCUP PO PRN (16:33)
[2019-09-06] MEDS: ATORVASTATIN 20 MG TABLET PO SCH (21:43)
[2019-09-07] MEDS: LEVOTHYROXINE 100 MCG TABLET PO SCH (05:30)
[2019-09-07] MEDS: DOBUTamine 500 MG/250 ML PREMIX IV SCH (06:02)
[2019-09-07 06:28] LABS: Anion Gap 14.3 MMOL/L (5.0-15.0); Calcium 8.3 MG/DL (8.5-10.1); Magnesium 2.3 MG/DL (1.8-2.4); Osmolality,Calculated 270.8 MOS/KG (273-304); Potassium 4.3 MMOL/L (3.5-5.1)
[2019-09-07] MEDS: carvediloL 3.125 MG TABLET PO SCH ×2 (09:04→21:29)
[2019-09-07] MEDS: PANTOPRAZOLE 40 MG TABLET PO SCH (09:04)
[2019-09-07] MEDS: FUROSEMIDE 40 MG/4 ML VIAL IV SCH (09:04)
[2019-09-07] MEDS: ASPIRIN EC 81 MG TABLET PO SCH (09:04)
[2019-09-07] MEDS: CLOPIDOGREL 75 MG TABLET PO SCH (09:04)
[2019-09-07] MEDS: ENOXAPARIN 30 MG/0.3 ML SYRINGE SUBCUT SCH (09:05)
[2019-09-07] MEDS: ATORVASTATIN 20 MG TABLET PO SCH (21:28)
[2019-09-08] MEDS ORDERED: PHENYLEPHRINE DRIP 40 MG/250 ML PREMIX IV ONE (03:32)
[2019-09-08 03:39] LABS: ABG Base Excess -12.1 MMOL/L (-2.5-2.5); ABG HCO3 11.8 MMOL/L (20-26); ABG Oxygen Saturation 99.9 % (95-100); ABG PCO2 23.9 MM HG (35-48); ABG PH 7.311 (7.35-7.45); ABG TCO2 12.5 MMOL/L (23-27); Allen Test Positive; Amb Air Removed From Sample? Yes; Chart Checked? Yes; Duration of Pressure (Mins) 5; Number of Venipunct Attempts 1; Pt O2 Delivery Device Ventilator; Puncture Site Left Brachial; Sample Placed on Ice? Yes
[2019-09-08 03:42] LABS: ABG PO2 520.5 MM HG (80-95)
[2019-09-08] MEDS ORDERED: DOBUTamine 500 MG/250 ML PREMIX IV PRN (03:42)
[2019-09-08] MEDS ORDERED: DOBUTamine 500 MG/250 ML PREMIX IV ONE (03:42)
[2019-09-08] MEDS ORDERED: SODIUM BICARBONATE 50 MEQ/50 ML SYRINGE IV ONE (03:51)
[2019-09-08] MEDS ORDERED: CALCIUM CHLORIDE 1,000 MG/10 ML SYRINGE IV ONE (03:51)
[2019-09-08] MEDS ORDERED: EPINEPHrine 1 MG/10 ML SYRINGE ONE (03:51)
[2019-09-08 03:54] LABS: Basophils # 0.1 10*3/uL (0.0-0.2); Basophils % 0.6 % (0.0-0.8); Eosinophils # 0.1 10*3/uL (0.0-0.87); Eosinophils % 1.6 % (0.00-10.9); Hematocrit 53.3 VOL% (42.0-52.0); Hemoglobin 16.5 GM/DL (14.0-18.0); Hgb & Hct Comparison OK; Immature Granulocytes % 3.9 %; Lymphocytes # 1.9 10*3/uL (1.4-4.0); Mean Corpuscular Hemoglobin 31 PG (27-34); Mean Corpuscular Volume 100.8 FL (87-102); Mean Platelet Volume 10.8 FL (9.6-12.0); Monocytes # 0.5 10*3/uL (0.11-0.8); NRBC # 0.03 10*3/uL; Neutrophils # 4.8 10*3/uL (1.4-7.4); Neutrophils % 62.9 % (38.7-73.9); Nucleated Red Blood Cells % 0.4 /100WBC; Platelet Count 197 T/CUMM (130-400); Red Blood Count 5.29 MC/CUMM (3.8-5.5); Red Cell Distribution Width 13.5 % (9.3-17.3); White Blood Count 7.7 T/CUMM (4-12)
[2019-09-08 04:02] LABS: PT Patient Result 20.3 SECS (9.8-11.9)
[2019-09-08 04:23] LABS: Alanine Aminotransferase 54 U/L (16-61); Albumin 3.4 G/DL (3.4-5.0); Albumin/Globulin Ratio 0.9 RATIO (1.1-2.2); Alkaline Phosphatase 112 U/L (45-117); Aspartate Amino Transferase 60 U/L (0-37); Blood Urea Nitrogen 47 MG/DL (7-18); Calcium 9.3 MG/DL (8.5-10.1); Carbon Dioxide 19 MMOL/L (21-32); Chloride 101 MMOL/L (98-107); Creatine Kinase MB 4.8 NG/ML (0.5-3.6); Estimated Glom Filtration Rate 28 ML/MIN; Globulin 3.5 G/DL (2.3-3.5); Glucose 126 MG/DL (74-106); Magnesium 3.2 MG/DL (1.8-2.4); Osmolality,Calculated 275.7 MOS/KG (273-304); Sodium 131 MMOL/L (136-145); Total Protein 6.9 G/DL (6.4-8.3)
[2019-09-08] MEDS ORDERED: MIDAZOLAM 100 MG in SODIUM CHLORIDE 0.9% 80 ML IV PRN (04:27)
[2019-09-08] MEDS ORDERED: CISATRACURIUM 200 MG in SODIUM CHLORIDE 0.9% 180 ML IV PRN (04:27)
[2019-09-08] MEDS ORDERED: fentaNYL INJ 1,250 MCG in SODIUM CHLORIDE 0.9% 225 ML IV PRN (04:27)
[2019-09-08] MEDS ORDERED: DOPamine 800 MG/250 ML PREMIX IV ONE (04:37)
[2019-09-08] MEDS ORDERED: DOPamine 800 MG/250 ML PREMIX IV PRN (04:37)
[2019-09-08 05:08] LABS: ABG Base Excess -9.3 MMOL/L (-2.5-2.5); ABG HCO3 14.1 MMOL/L (20-26); ABG Oxygen Saturation 99.4 % (95-100); ABG PCO2 25.9 MM HG (35-48); ABG PH 7.355 (7.35-7.45); ABG PO2 198.8 MM HG (80-95); ABG TCO2 14.9 MMOL/L (23-27)
[2019-09-08 05:25] VITALS: BP 84/63
[2019-09-08 05:40] LABS: Amylase 94 U/L (25-115); Phosphorous 5.7 MG/DL (2.5-4.9)
[2019-09-08] MEDS: PHENYLEPHRINE DRIP 40 MG/250 ML PREMIX IV PRN ×3 (06:09→10:07)
[2019-09-08] MEDS ORDERED: SODIUM CHLORIDE 0.9% 250 ML IV ONE ×2 (06:42→06:56)
[2019-09-08 06:43] LABS: ABG Base Excess -7.1 MMOL/L (-2.5-2.5); ABG HCO3 18.7 MMOL/L (20-26); ABG Oxygen Saturation 93.2 % (95-100); ABG PH 7.345 (7.35-7.45); ABG TCO2 14.7 MMOL/L (23-27)
[2019-09-08] MEDS: LEVOTHYROXINE 100 MCG TABLET PO SCH (07:06)
[2019-09-08 07:28] LABS: Reflex Lactate? Y
[2019-09-08] MEDS ORDERED: HYDROCORTISONE 100 MG VIAL IV SCH (07:30)
[2019-09-08] MEDS ORDERED: cefTRIAXone 1,000 MG in SYRINGE 1 EACH IV SCH (07:30)
[2019-09-08 07:45] LABS: Basophils % 0.1 % (0.0-0.8); Eosinophils % 0.1 % (0.00-10.9); Hematocrit 50.4 VOL% (42.0-52.0); Hemoglobin 16.4 GM/DL (14.0-18.0); Hgb & Hct Comparison OK; Immature Granulocytes % 0.5 %; Immature Granulocytes Absolute 0.07 #; Lymphocytes # 0.4 10*3/uL (1.4-4.0); Lymphocytes % 3.1 % (21.2-54.2); Mean Corpuscular HGB Conc 32.5 GM/DL (32-36); Mean Corpuscular Hemoglobin 31 PG (27-34); Mean Corpuscular Volume 95.5 FL (87-102); Mean Platelet Volume 10.3 FL (9.6-12.0); Monocytes % 7.4 % (1.7-12.7); NRBC # 0.02 10*3/uL; Neutrophils # 12.4 10*3/uL (1.4-7.4); Neutrophils % 88.8 % (38.7-73.9); Nucleated Red Blood Cells % 0.1 /100WBC; Platelet Count 200 T/CUMM (130-400); Red Blood Count 5.28 MC/CUMM (3.8-5.5); Red Cell Distribution Width 13.4 % (9.3-17.3); White Blood Count 13.9 T/CUMM (4-12)
[2019-09-08] MEDS: ASPIRIN EC 81 MG TABLET PO SCH (08:18)
[2019-09-08] MEDS: CLOPIDOGREL 75 MG TABLET PO SCH (08:18)
[2019-09-08] MEDS: ENOXAPARIN 30 MG/0.3 ML SYRINGE SUBCUT SCH (08:18)
[2019-09-08] MEDS: PANTOPRAZOLE 40 MG TABLET PO SCH (08:18)
[2019-09-08] MEDS: carvediloL 3.125 MG TABLET PO SCH (08:18)
[2019-09-08 09:01] LABS: Band Neutrophils 7 % (0-10); Lymphocytes 4 % (20-55); Monocytes 1 % (2-15); Segmented Neutrophils 88 % (50-85); Total Cells Counted 100
[2019-09-08 09:02] LABS: Acanthocytes Few
[2019-09-08 09:03] LABS: Burr Cells Few; Microcytosis Slight
[2019-09-08 09:04] LABS: Hypochromasia 1+; Platelet Estimate Normal; Polychromasia Slight
[2019-09-08 09:42] LABS: Basophils % 0.2 % (0.0-0.8); Eosinophils % 0.1 % (0.00-10.9); Hematocrit 49.4 VOL% (42.0-52.0); Hemoglobin 16.3 GM/DL (14.0-18.0); Hgb & Hct Comparison OK; Immature Granulocytes % 0.5 %; Immature Granulocytes Absolute 0.08 #; Lymphocytes # 0.4 10*3/uL (1.4-4.0); Lymphocytes % 2.6 % (21.2-54.2); Mean Corpuscular Hemoglobin 31 PG (27-34); Mean Corpuscular Volume 93.9 FL (87-102); Mean Platelet Volume 10.5 FL (9.6-12.0); Monocytes % 5.9 % (1.7-12.7); Neutrophils % 90.7 % (38.7-73.9); Platelet Count 206 T/CUMM (130-400); Red Blood Count 5.26 MC/CUMM (3.8-5.5); Red Cell Distribution Width 13.4 % (9.3-17.3); White Blood Count 16.6 T/CUMM (4-12)
[2019-09-08 10:04] LABS: Anion Gap 18.6 MMOL/L (5.0-15.0); Blood Urea Nitrogen 49 MG/DL (7-18); Calcium 8.6 MG/DL (8.5-10.1); Carbon Dioxide 14 MMOL/L (21-32); Chloride 104 MMOL/L (98-107); Estimated Glom Filtration Rate 27 ML/MIN; Glucose 164 MG/DL (74-106); INR 1.8; Magnesium 2.9 MG/DL (1.8-2.4); Osmolality,Calculated 280.5 MOS/KG (273-304); PT Patient Result 18.8 SECS (9.8-11.9); Partial Thromboplastin Time 32.4 SECS (23.9-33.8); Potassium 4.6 MMOL/L (3.5-5.1); Sodium 132 MMOL/L (136-145)
[2019-09-08 10:08] LABS: CKMB % 4.7 %; Creatine Kinase MB 29.7 NG/ML (0.5-3.6)
[2019-09-08 10:12] LABS: Troponin I 1.25 NG/ML (0.00-0.045)
[2019-09-08 10:39] LABS: Band Neutrophils 6 % (0-10); Burr Cells Few; Hypochromasia 1+; Lymphocytes 1 % (20-55); Microcytosis Slight; Monocytes 2 % (2-15); Segmented Neutrophils 91 % (50-85); Total Cells Counted 100
[2019-09-08 10:40] LABS: Acanthocytes Few
[2019-09-08 10:41] LABS: Ovalocytes Slight; Platelet Estimate Normal
[2019-09-08 11:39] LABS: Reflex Lactate? Y
[2019-09-09] MEDS ORDERED: PANTOPRAZOLE 40 MG VIAL IV SCH (09:00)
== END 2019-09-08 10:45 | disposition expired ==
LOC: N.ED 17:04 → N.EDINP 19:20 → N.ICU 22:00 → N.TELES 09-03 14:02 → N.ICU 09-08 03:23
PROVIDERS: ADMIT Internal Medicine Cardiovascular Disease; ATTEND Internal Medicine Cardiovascular Disease